=== PATIENT | female | born 1935 | race Caucasian/White ===

== ENCOUNTER → 2018-03-24 | Outpatient (REF) | payer MEDICARE ==
[2018-03-24 14:26] LABS: ERYTHROCYTE SEDIMENTATION RATE 17 mm/hr (0-30)
[2018-03-24 14:30] LABS: VITAMIN B12 LEVEL 932 PG/ML
[2018-03-24 14:31] LABS: FOLATE > 24.0 NG/ML
[2018-03-24 14:39] LABS: TOTAL PROTEIN 7.1 GM/DL (6.4-8.2)
[2018-03-25 12:03] LABS: ALBUMIN 3.92 GM/DL (3.29-5.55); ALBUMIN % 55.2 % (55.8-66.1); ALPHA-1-GLOBULIN % 6.7 % (2.9-4.9); ALPHA-1-GLOBULINS 0.48 GM/DL (0.17-0.41); ALPHA-2-GLOBULINS 0.65 GM/DL (0.42-0.99); ALPHA-2-GLOBULINS % 9.1 % (7.1-11.8); BETA-1-GLOBULINS % 7.1 % (4.7-7.2); BETA-2-GLOBULINS % 5.6 % (3.2-6.5); GAMMA GLOBULIN % 16.3 % (11.1-18.8); GAMMA GLOBULINS 1.16 GM/DL (0.65-1.58)
[2018-03-28 09:39] LABS: ANTI DOUBLE STRAND-DNA AB 48 IU/mL (0-9); ANTINUCLEAR ANTIBODIES DIRECT Positive (Negative); Lyme Disease IgG/IgM Antibodie <0.91 ISR (0.00-0.90); Lyme Disease IgM Ab Quantitati <0.80 index (0.00-0.79); RNP ANTIBODIES <0.2 AI (0.0-0.9); SJOGREN'S ANTI SS-A 7.9 AI (0.0-0.9); SJOGREN'S ANTI SS-B <0.2 AI (0.0-0.9); SMITH ANTIBODIES <0.2 AI (0.0-0.9); VITAMIN B1 LEVEL WHOLE BLOOD 220.6 nmol/L (66.5-200.0); VITAMIN B6,PYRIDOXAL PHOSPHATE 9.8 ug/L (2.0-32.8); VITAMIN E(ALPHA TOCOPHEROL) 14.9 mg/L (9.0-29.0); VITAMIN E(GAMMA TOCOPHEROL) 1.3 mg/L (0.5-4.9)
== END ==
LOC: M LABNEURO 11:04
DX: R53.83 Other fatigue (principal); E07.9 Disorder of thyroid, unspecified; A69.20 Lyme disease, unspecified
CPT/HCPCS: 82746

== ENCOUNTER → 2020-06-07 | Outpatient (CLI) | payer MEDICARE ==
[~2020-06-07] MED LIST: CALCTAB89 PO; MULTCAP PO; SYNT75TA PO; VITA100066 PO; VITATAB73 PO
[2020-06-07 15:49] VITALS: BP 130/80
--- NOTE | 2020-06-13 16:22 | REP ---
POST-BIOPSY MAMMOGRAM RIGHT BREAST: 06/07/20 HISTORY: Stereotactic biopsy clustered microcalcifications right breast. ML and CC views of the right breast are performed prior to and follow stereotactic biopsy of clustered microcalcifications at about 6 oclock in the mid to posterior third of the right breast. The calcifications are well visualized on the pre-biopsy images. The post-biopsy ML and CC views show a metallic clip at the site of the clustered microcalcifications and the vast majority of the calcifications are no longer visualized. There may be a single tiny remaining calcification at that location. A hydro marj biopsy clip is present at that location. [facility]
--- NOTE | 2020-06-13 16:24 | REP ---
SPECIMEN RADIOGRAPH FOLLOW STEREOTATIC BIOPSY: 06/07/20 HISTORY: Right breast microcalcifications. Specimen radiograph performed following stereotactic biopsy of clustered microcalcifications in the lower right breast. Multiple calcifications are seen in the specimens. [facility]
== END ==
LOC: M WHCPRO 13:57
PROVIDERS: ATTEND Family Medicine
DX: N60.21 Fibroadenosis of right breast (principal)